=== PATIENT | female | born 1955 | race Two or more races ===

== ENCOUNTER 2018-08-19 10:42 | Emergency (ER) | payer OTHER ==
[~2018-08-19] VITALS: Ht 160 cm; Wt 72.6 kg
[2018-08-19] MEDS ORDERED: PRINIVIL20 MG PO (10:57)
== END 2018-08-19 14:33 | disposition home or self-care (01) ==
LOC: ER 10:42
DX: R05 Cough (principal)

== ENCOUNTER 2020-06-23 10:02 | Emergency (ER) | payer OTHER ==
[~2020-06-23] VITALS: Ht 160 cm; Wt 70.8 kg
[~2020-06-23 10:02] MED LIST: PRINIVIL20 MG PO
[2020-06-23] MEDS ORDERED: NORVASC5 MG (10:19)
== END 2020-06-23 17:25 | disposition home or self-care (01) ==
LOC: ER 10:02
DX: R42 Dizziness and giddiness (principal); I10 Essential (primary) hypertension

== ENCOUNTER 2023-06-04 09:01 | Outpatient (CLI) | payer OTHER ==
[~2023-06-04 09:01] MED LIST changes: +NORVASC5 MG
== END 2023-06-04 11:33 | disposition home or self-care (01) ==
LOC: TOM 09:01
PROVIDERS: ATTEND Otolaryngology Otolaryngology/Facial Plastic Surgery
DX: E04.1 Nontoxic single thyroid nodule (principal); J38.4 Edema of larynx; R13.10 Dysphagia, unspecified; J32.4 Chronic pansinusitis